=== PATIENT | female | born 1955 | race Caucasian/White ===

== ENCOUNTER 2018-08-12 15:17 | Outpatient (CLI) | payer OTHER | END 2018-08-12 15:18 | disposition home or self-care (01) | LOC: BICMAMMO 15:17 | PROVIDERS: ATTEND Nurse Practitioner Family | DX: Z12.31 Encounter for screening mammogram for malignant neoplasm of breast (principal) | CPT/HCPCS: 77063; 77067 ==

== ENCOUNTER 2022-10-09 09:09 | Outpatient (CLI) | payer MEDICARE, BC | END 2022-10-09 09:10 | disposition home or self-care (01) | LOC: MRI 09:09 → SCSMRI 09:10 | PROVIDERS: ATTEND Nurse Practitioner Family | DX: M25.511 Pain in right shoulder (principal); M25.411 Effusion, right shoulder; M19.011 Primary osteoarthritis, right shoulder; M75.51 Bursitis of right shoulder; S46.911D Strain of unspecified muscle, fascia and tendon at shoulder and upper arm level, right arm, subsequent encounter ==

== ENCOUNTER 2022-10-09 11:51 | Outpatient (CLI) | payer MEDICARE, BC | END 2022-10-09 11:52 | disposition home or self-care (01) | LOC: BICMAMMO 11:51 | PROVIDERS: ATTEND Nurse Practitioner Family | DX: Z12.31 Encounter for screening mammogram for malignant neoplasm of breast (principal) | CPT/HCPCS: 77063; 77067 ==

== ENCOUNTER 2023-02-14 08:16 | Day surgery (SDC) | payer MEDICARE, BC ==
[2023-02-11 09:08] VITALS: BMI 27.4
[2023-02-14] MEDS ORDERED: Sodium Chloride 0.9% 100 ML ONE (08:47)
[2023-02-14] MEDS ORDERED: Lidocaine 1% (PF) 30 ML VIAL ONE (08:47)
[2023-02-14] MEDS ORDERED: CEFAZOLIN 2 GM VIAL ONE (08:47)
[2023-02-14] MEDS ORDERED: fentaNYL 50 mcg/mL 1 mL Vial ONE (09:25)
[2023-02-14] MEDS ORDERED: Bupivacaine PF 0.5% 30 ML VIAL ONE (09:25)
[2023-02-14] MEDS ORDERED: Midazolam HCl 2 mg/2 ml Vial ONE (09:25)
[2023-02-14] MEDS ORDERED: EPINEPHrine 1 MG/ML AMP ONE (10:02)
[2023-02-14] MEDS ORDERED: fentaNYL PF 100 MCG/2 ML SYRINGE ONE (10:13)
[2023-02-14] MEDS ORDERED: SUGAMMADEX SODIUM 200 MG/2 ML VIAL ONE (10:13)
[2023-02-14] MEDS ORDERED: Metoclopramide HCl 10 MG/2 ML VIAL ONE (10:29)
[2023-02-14] MEDS ORDERED: Rocuronium Bromide 10 MG/ML (10ML VIAL) ONE (10:29)
[2023-02-14] MEDS ORDERED: Ondansetron PF 4 MG/2 ML Vial ONE ×2 (10:29→11:39)
[2023-02-14] MEDS ORDERED: PROPOFOL 200 MG/20 ML VIAL ONE (10:29)
[2023-02-14] MEDS ORDERED: Ketorolac Tromethamine 30 MG/ML VIAL ONE (10:29)
[2023-02-14] MEDS ORDERED: Lidocaine 1% PF 5 ML VIAL ONE (10:29)
[2023-02-14] MEDS ORDERED: Ropivacaine 0.2% 550 ML 550 ML NERVE BLCK SCH (10:45)
[2023-02-14] MEDS ORDERED: Ondansetron PF 4 MG/2 ML Vial IVP PRN (10:45)
[2023-02-14] MEDS ORDERED: HYDROcodone/Acetaminophen 10/325 mg Tablet PO PRN ×2 (10:45)
[2023-02-14] MEDS ORDERED: Promethazine HCl 25 MG/ML VIAL IM PRN (10:45)
[2023-02-14] MEDS ORDERED: Zolpidem Tartrate 5 MG TAB PO PRN (10:45)
[2023-02-14] MEDS ORDERED: traMADol HCl 50 MG TAB PO PRN ×2 (10:45)
[2023-02-14] MEDS ORDERED: Ketorolac Tromethamine 30 MG/ML VIAL IVP SCH (12:00)
== END 2023-02-14 14:45 | disposition home or self-care (01) ==
LOC: SDC 08:16
PROVIDERS: ATTEND Orthopaedic Surgery
PROC: 0LS34ZZ Reposition Right Upper Arm Tendon, Percutaneous Endoscopic Approach (ICD-10-PCS; principal; 2023-02-14)
DX: S46.011A Strain of muscle(s) and tendon(s) of the rotator cuff of right shoulder, initial encounter (principal); S46.211A Strain of muscle, fascia and tendon of other parts of biceps, right arm, initial encounter; M94.211 Chondromalacia, right shoulder; E78.5 Hyperlipidemia, unspecified; Z79.899 Other long term (current) drug therapy; X58.XXXA Exposure to other specified factors, initial encounter
CPT/HCPCS: 29827; 29828; A4306; C1713 ×3; J3010; J0171; J1885; J2001; J2250; J2405; J2704; J2765; J2795; J3490; S0020